=== PATIENT | male | born 1990 | race Caucasian/White ===

== ENCOUNTER 2023-10-04 21:12 | Emergency (ER) | payer MEDICAID, SELFPAY ==
[2023-10-04] VITALS (14 sets, daily range): BP systolic 114–127; BP diastolic 65–85; PULSE 54–115; RESP 10–20; TEMP 35.7; O2SAT 95–100
--- NOTE | ~2023-10-04 | XR_ITS ---
XR chest 1V portable Ordering provider: Daljit Perales MD History: 33 years Male with . TRANSIENT ALTERATION OF AWARENESS. . Comparison: April 29, 2018 FINDINGS: MEDIASTINUM: The cardiac silhouette is not enlarged. LUNGS: No infiltrates, effusions or pneumothorax. OTHER: No free air under the diaphragm. IMPRESSION: No acute cardiopulmonary pathology. Reviewed, dictated and finalized at location A.
--- NOTE | ~2023-10-04 | CT_ITS ---
CT brain wo con Ordering provider: Daljit Perales MD History: 33 years Male with . dizzy, lightheaded, feels in a fog . Comparison: None. Technique: CT of the head without contrast. Radiation reduction technique utilized. The dose-length product was 605.33 mGy-cm. FINDINGS: BRAIN PARENCHYMA AND CSF SPACES: No midline shift, mass effect or hemorrhage. The brain parenchyma a nd CSF spaces are otherwise normal. VISUALIZED PARANASAL SINUSES: Well aerated. MASTOIDS: Well aerated. BONES: The bones appear intact. SOFT TISSUES: Visualized nasopharynx is normal. Superficial soft tissues are normal. IMPRESSION: No acute intracranial findings. Reviewed, dictated and finalized at location A.
--- NOTE | 2023-10-04 21:34 | PC.NURSE ---
ER provider at the bedside
--- NOTE | 2023-10-04 21:45 | ECG_ITS ---
Test Date: 2023-10-04 21:54:13 Measurements Intervals [place] Rate: 62 P: 63 IN: 167 QRS: 83 QRSD: 105 T: 62 QT: 405 QTc: 412 Interpretive Statements SINUS RHYTHM NORMAL ELECTROCARDIOGRAM No previous ECG available for comparison Electronically Signed On 10-07-2023 14:46:36 CDT by Pako Jaquez M.D.
--- NOTE | 2023-10-04 21:59 | PC.NURSE ---
xray at the bedside
[2023-10-04 22:04] LABS: Basophils Absolute Auto 0.05 K/mm3 (0.00-0.10); Basophils Percent Auto 0.8 % (0.0-1.0); Eosinophils Absolute Auto 0.23 K/mm3 (0.02-0.50); Eosinophils Percent Auto 3.7 % (1.0-6.0); Hematocrit 37.5 % (40.0-54.0); Hemoglobin 13.3 g/dL (14.0-18.0); Immature Granulocyte Absolute 0.01 K/mm3 (0.00-0.00); Immature Granulocyte Percent A 0.2 % (0.0-0.0); Lymphocytes Absolute Auto 1.41 K/mm3 (1.10-4.50); Lymphocytes Percent Auto 22.8 % (18.0-42.0); Mean Corpuscular HGB Conc 35.5 g/dL (32-36); Mean Corpuscular Hemoglobin 30.9 pg (27.0-31.0); Mean Platelet Volume 8.9 fl (8.7-11.0); Monocytes Absolute Auto 0.66 K/mm3 (0.10-0.90); Monocytes Percent Auto 10.7 % (2.0-11.0); Neutrophils Absolute Auto 3.82 K/mm3 (1.70-7.20); Neutrophils Percent Auto 61.8 % (50.0-70.0); Platelet Count Result 217 K/mm3 (150-420); Red Blood Count 4.31 M/mm3 (4.70-6.10); Red Cell Distribution Width 11.6 % (11.6-14.4); White Blood Count 6.2 K/mm3 (4.8-10.8)
--- NOTE | 2023-10-04 22:06 | PC.NURSE ---
patient is resting on stretcher with family at his side. patient color is returning. [place] at this time. Patient was pale on arrival
[2023-10-04 22:14] LABS: D Dimer 0.24 mg/L (0.19-0.50)
[2023-10-04 22:19] LABS: Lactic Acid Reflex 0.8 mmol/L (0.4-2.0)
--- NOTE | 2023-10-04 22:19 | PC.NURSE ---
patient being transported to ct via stretcher
[2023-10-04 22:28] LABS: Alanine Aminotransferase 27 U/L (16-63); Albumin Level 3.7 g/dL (3.4-5.0); Alkaline Phosphatase 52 U/L (46-116); Anion Gap 8 mmol/L (4-12); Aspartate Amino Transferase 24 U/L (15-37); Bilirubin,Total 0.5 mg/dL (0.00-1.00); Blood Urea Nitrogen 15 mg/dL (7-18); Calcium 8.5 mg/dL (8.5-10.1); Carbon Dioxide 30 mmol/L (21-32); Chloride 105 mmol/L (98-108); Estimated CRCL calculation 90 ml/min; Estimated Glomerular Filt Rate > 60; Glucose 105 mg/dL (70-99); NT Pro B Type Natriuretic Pept < 11 pg/mL (0-125); Osmolality Calculated 296 mOsm/kg (285-295); Potassium 3.4 mmol/L (3.5-5.1); Sodium 143 mmol/L (136-145); Total Protein 6.5 g/dL (6.4-8.2); Troponin I 4.2 ng/L (0.00-60.4)
[2023-10-04 22:33] LABS: Creatine Kinase 456 U/L (39-308); Ethanol < 3 mg/dL (0-6)
[2023-10-04] MEDS: LACTATED RINGERS 1,000 ML 999 ML IV CONT ×2 (22:35→23:59)
--- NOTE | 2023-10-04 22:35 | PC.NURSE ---
patient was informed that a urine sample is needed. urinal is at the bedside
--- NOTE | 2023-10-04 22:45 | ED.DIZZY ---
HPI - Dizziness General Chief Complaint: Dizziness Stated Complaint: Dizzy Time Seen by Provider: 10/04/23 21:24 Source: patient and family History of Present Illness HPI Narrative: 33-year-old white male without any previous medical conditions presents with onset couple of hours ago of some dizziness, malaise, just did not feel right, when he would stand up and walk around he would get lightheaded, dizzy, feel like he might be coming close to passing out, and sit back down or lay back down. His dizziness is more feeling wobbly, unsteady, but there is no vertigo, and moving his head in different positions does not give him any vertigo. He denies any recent prodromes, denies any recent fever, chills, sore throat, coughing, chest pain, has had a few palpitations when he goes to stand up, and he does feel a little lightheaded when he tries to stand. No syncope. Denies abdominal pain, nausea vomiting, diarrhea or constipation, dysuria urgency or frequency. 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 , Related Data Home Medications Medication Instructions Recorded Confirmed No Home Medications 10/04/23 10/04/23 Allergies Allergy/AdvReac Type Severity Reaction Status Date / Time No Known Allergies Allergy Verified 10/04/23 21:41 Review of Systems Review of Systems: All systems reviewed & are unremarkable except as noted in HPI and below PMFSH Social History Social History (Updated 10/04/23 @ 22:49 by Daljit Perales MD) Smoking status: Current every day smoker Exam Const: General: no acute distress, alert and well nourished Nutritional Appearance: well nourished Orientation/consciousness: patient oriented x3 Limitations: no limitations Other: Patient looks uncomfortable, looks somewhat pale, but is well oriented, is a good historian, has intact strength in all 4 extremities, no ataxia, no nystagmus, no focal neurological findings, an H is 0 HENMT: Head: normal to inspection Ears: external ears normal Face/Nose/Sinus: Normal external nose present and normal facial exam Face and sinus: normal facial exam Mouth: Yes Normal oral and palatal mucosa present Teeth and gingiva: dentition normal Throat: posterior oropharynx normal Eyes: Conjunctivae: conjunctivae normal Pupils: Equal, round and reactive pupils present EOM: EOMs intact bilaterally Neck: Neck: normal visual inspection and no meningeal signs Chest: Chest palpation & inspection: normal inspection of the chest Resp: Effort & Inspection: normal respiratory effort Auscultation: clear to auscultation bilaterally Cardio: Rate: regular rate Rhythm: regular rhythm GI: GI Palp: Yes Soft to palpation and Yes Tenderness to palpation present (GI) Auscultation: normal bowel sounds Other: No mass, no organomegaly, no percussion or rebound tenderness : General: Yes bladder normal to palpation Skin: General skin exam: normal color Rashes: no rashes Wounds: no wounds Other: patient was little pale on presentation, however color was good as he began getting IV fluids Neuro: General: patient oriented x3, moves all extremities, no meningeal signs, no focal motor deficits and CN's II-XI intact bilaterally Cranial nerves: Yes Equal, round and reactive pupils present and Yes Nystagmus not present Speech: normal speech Gait exam (Neuro): Normal gait present Extrem: General: normal to inspection, no clubbing, cyanosis or edema and no pedal edema Psych: Mental Status: mental status grossly normal Attitude: cooperative Course Course Emergency Course: differential diagnosis includes but is not limited to dehydration, heat exhaustion, orthostatic hypotension, COVID, influenza, or other illness, he is oriented x3, is pleasant he does speak somewhat softly and I have to ask him to speak up. Likely Vital Signs Vital signs: Vital Signs Temperature 35
--- NOTE | 2023-10-04 22:57 | PC.NURSE ---
resting quietly on stretcher. lr infusing to right ac. site without redness or irritation. family at the bedside. call light in reach. aware that a urine sample is needed. unable to void at this time
--- NOTE | 2023-10-04 23:22 | PC.NURSE ---
encouraged patient to keep right arm straight so IV fluids could infuse.
[2023-10-05 00:01] VITALS: BP 113/73; PULSE 68; RESP 12; O2SAT 96
--- NOTE | 2023-10-05 00:01 | PC.NURSE ---
patient is resting on stretcher. appears to be sleeping. resp even and unlabored. family member at the bedside. call light in reach. updated dr west on patient
[2023-10-05 00:16] VITALS: BP 116/73; PULSE 53; RESP 11; O2SAT 99
--- NOTE | 2023-10-05 00:38 | PC.NURSE ---
woke patient up. asked patient how he was feeling. patient states so much better . asked patient if he would be able to give a urine sample. Urinal given to patient. This RN and family member stepped out of the room.
--- NOTE | 2023-10-05 00:48 | PC.NURSE ---
urine taken down to lab and given to Sara
[2023-10-05] MEDS: LACTATED RINGERS 1,000 ML 999 ML IV CONT (00:52)
[2023-10-05 00:53] LABS: Add Urine Microscopic? NO; Appearance Urine Clear (Clear); Bilirubin Urine Negative (Negative); Blood Urine Negative (Negative); Color Urine Yellow (Yellow); Glucose Urine UA Negative (Negative); Ketones Urine Negative (Negative); Leukocyte Esterase Ur Negative LEU/UL (Negative); Nitrate Urine Negative (Negative); Protein Urine Negative (Negative); Specific Grav Ur >= 1.030 (1.010-1.020); Urobilinogen Urine 0.2 mg/dL (0.2-1.0); pH Urine 6.5 (5.0-8.0)
--- NOTE | 2023-10-05 00:53 | PC.NURSE ---
resting on stretcher with 3rd liter of fluids infusing. call light in reach. family at the bedside. offered blanket to both, refused blanket at this time
[2023-10-05 01:15] LABS: Amphetamine Screen Urine Positive (Negative); Barbiturate Screen Urine Negative (Negative); Benzodiazepines Screen Urine Negative (Negative); Cannabinoid Screen Urine Negative (Negative); Cocaine Screen Urine Negative (Negative); Methadone Screen Urine Negative (Negative); Opiate Screen Urine Negative (Negative); Phencyclidine Screen Urine Negative (Negative)
--- NOTE | 2023-10-05 01:20 | PC.NURSE ---
mother requested antibiotics for his dental issue. dr west notified
[2023-10-05] MEDS: AMOXICILLIN/CLAVULANATE K 875-125 MG TAB 1 TABLET PO (01:35)
[2023-10-05 01:49] VITALS: BP 118/70; PULSE 60; RESP 20; O2SAT 99
--- NOTE | 2023-10-05 11:15 | PC.NURSE ---
call from pharmacy, [facility]. augmentin not covered by insurance. per dr fitzpatrick, clindamycin 300mg po qid #40 .
== END 2023-10-05 01:49 | disposition home or self-care (01) ==
PROVIDERS: Emergency Provider Emergency Medicine
DX: I95.1 Orthostatic hypotension (principal); E86.0 Dehydration; R42 Dizziness and giddiness; F17.200 Nicotine dependence, unspecified, uncomplicated
CPT/HCPCS: 36415; 70450; 71045; 80053; 80307; 81003; 82550; 83605; 83880; 84484; 85025; 85380; 93005; 96360; 96361; 99284; A9270; J7120